=== PATIENT | female | born 1945 | race Caucasian/White ===

== ENCOUNTER 2018-02-20 06:30 | Day surgery (SDC) | payer OTHER ==
[~2018-02-20] VITALS: Ht 153.7 cm; Wt 71.2 kg
[~2018-02-20 06:30] MED LIST: AMIT150T PO; ASPI81TA27 PO; CALC667C PO; CHOL20007 OR; CINN500C7 PO; CYA100I PO; DOCU-80 PO; FERR1TAB5 PO; FURO40TA PO; LOVA40TA72 PO; MAGN400C2 PO; METF-370 PO; OMEG100062 PO; PREG100C PO
[2018-02-20] MEDS ORDERED: LIDOCAINE 2%HCL (LOCAL ANESTH.) INJ 10ml MDV ONE (07:26)
[2018-02-20] MEDS ORDERED: IODIXANOL 320MG/ML 100ML BTL IV ONE (07:26)
[2018-02-20] MEDS ORDERED: ANGIOMAX 250 MG VIAL IV ONE (08:13)
[2018-02-20] MEDS ORDERED: MIDAZOLAM HCL 1MG/1ML-2 ML VIAL ONE (08:13)
[2018-02-20] MEDS ORDERED: fentaNYL CITRATE 100 MCG/2 ML VL ONE (08:13)
[2018-02-20] MEDS ORDERED: VERAPAMIL 2.5MG/ML INJ 2ML VIAL IV ONE (08:13)
[2018-02-20] MEDS ORDERED: SODIUM CHL 0.9% 0 ML ONE (08:14)
[2018-02-20] MEDS ORDERED: HEPARIN 1,000 UNITS/ml 1ML VIAL ONE (08:41)
== END 2018-02-20 11:05 | disposition home or self-care (01) ==
LOC: CATH 06:30
PROVIDERS: ATTEND Internal Medicine
DX: I34.0 Nonrheumatic mitral (valve) insufficiency (principal); I27.20 Pulmonary hypertension, unspecified; N18.3 Chronic kidney disease, stage 3 (moderate); J44.9 Chronic obstructive pulmonary disease, unspecified; E11.22 Type 2 diabetes mellitus with diabetic chronic kidney disease; I13.0 Hypertensive heart and chronic kidney disease with heart failure and stage 1 through stage 4 chronic kidney disease, or unspecified chronic kidney disease; E78.5 Hyperlipidemia, unspecified; Z83.3 Family history of diabetes mellitus; Z82.49 Family history of ischemic heart disease and other diseases of the circulatory system; Z80.8 Family history of malignant neoplasm of other organs or systems; Z82.3 Family history of stroke; Z79.84 Long term (current) use of oral hypoglycemic drugs; Z79.899 Other long term (current) drug therapy; Z87.891 Personal history of nicotine dependence; Z79.82 Long term (current) use of aspirin
CPT/HCPCS: 93456; 99152; 99153; A6257; C1751; C1769; C1894; J1644; J2001; J2250; J3010; J7030; Q9967; 93005